=== PATIENT | male | born 1965 | race Caucasian/White ===

== ENCOUNTER → 2018-08-29 | Outpatient (CLI) | END | disposition home or self-care (01) ==

== ENCOUNTER → 2019-01-10 | Outpatient (CLI) | payer OTHER ==
[~2019-01-10] MED LIST: ACET-2158 PO; AMLO-218 PO; CALC0.255 PO; CARV25TA97 PO; CLON-379 PO; ZOLP5TAB PO; [UNRECOGNIZED DRUG - CODE] PO
--- NOTE | 2019-01-11 09:03 | RADRPT ---
PROCEDURE: Limited x-ray of both lower extremities. CLINICAL INDICATION: Bilateral leg pain. TECHNIQUE: Single frontal weightbearing view of both lower extremities was obtained from the hips t o the ankles. COMPARISON: None. FINDINGS: The right femur measures 53 cm. The left femur measures 53 cm. The right tibia measures 42 cm. The left tibia measures 43 cm. There are degenerative changes of the right knee with medial joint compartment narrowing and associat ed varus deformity. There has been open reduction and internal fixation of the proximal left tibia. IMPRESSION: 1. 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 2. Prior left proximal tibia open reduction and internal fixation. RPTAT: QQ .Bong Parker MD, MD Date Time Electronically viewed and signed by .Bong Parker MD, on 01/11/2019 09:03 .R/
== END | disposition home or self-care (01) ==
LOC: HKI 14:44
PROVIDERS: ATTEND Orthopaedic Surgery Adult Reconstructive Orthopaedic Surgery
DX: M17.10 Unilateral primary osteoarthritis, unspecified knee (principal)
CPT/HCPCS: 77073